=== PATIENT | female | born 1985 | race Caucasian/White ===

== ENCOUNTER 2025-08-30 04:08 | Emergency (ER) | payer OTHER, SELFPAY ==
--- OUTSIDE RECORDS SUMMARY | 2023-07-16 01:30 | XMS_ITS | Continuity of Care Document ---
Author Organization [facility] Address [address] [place] [address] [address] [place] [address] Phone Care Team Providers [facility] Name Role Phone Lucio Carvajal PT Unavailable Unavailable Procedures Procedure Date Therapeutic Activities Neuromuscular Re-Ed Therapeutic Exercise Therapeutic Activities Neuromuscular Re-Ed Therapeutic Exercise Dry Needling 1-2 muscles Therapeutic Activities Neuromuscular Re-Ed Therapeutic Exercise Dry Needling 1-2 muscles Therapeutic Activities Neuromuscular Re-Ed Therapeutic Exercise Therapeutic Activities Neuromuscular Re-Ed Therapeutic Exercise Therapeutic Activities Neuromuscular Re-Ed Therapeutic Exercise Therapeutic Activities Neuromuscular Re-Ed Therapeutic Exercise Therapeutic Activities Neuromuscular Re-Ed Therapeutic Exercise Therapeutic Activities Neuromuscular Re-Ed Therapeutic Exercise PT Evaluation Low Complexity Therapeutic Activities Neuromuscular Re-Ed Therapeutic Exercise Free Assessment Advance Directives Directive Yes / No Effective Date File Name No Information Encounters Encounter Description Practice Location Reason(s) For Visit Diagnoses Date Provider Providers Copied on Encounter [facility], [address], [place], [place], [id number], tel:[phone] [place] No Information Wei Morales . Referring Provider: Access Direct. [facility], [place], [place], [id number], tel:[phone] [place] No Information Wei Morales . Referring Provider: Access Direct. [facility] [address], [place], [place], [id number], tel:[phone] [place] No Information Wei Morales . Referring Provider: Access Direct. [facility], [place], [place], [id number], tel:[phone] [place] No Information Wei Morales . Referring Provider: Access Direct. [facility], [place], [place], [id number], [place] tel:[phone] [place] No Information Wei Morales . Referring Provider: Access Direct. [facility], [place], [id number], [place] tel:[phone] [place] No Information Wei Morales . Referring Provider: Access Direct. [facility], [place], [id number], [place] tel:[phone] [place] No Information Wei Morales . Referring Provider: Access Direct. [facility], [place], [id number], tel:[phone] [place] No Information Wei Morales . Referring Provider: Access Direct. [facility], [place], [id number], tel:[phone] [place] No Information Wei Morales . Referring Provider: [facility]. [facility], [place], [place], [id number], tel:[phone] [place] No Information Wei Morales . Referring Provider: Access Direct. [facility] [address], [place], [place], [id number], tel:[phone] [place] No Information Wei Morales . Referring Provider: Physician Screen. Family History Family Member Type Diagnosis Age At Onset No Information Payers Payer name Insurance type Covered alliance party ID Authorheathera tilobo(s) [facility] CI [id number] Social History Type Description Quantity Date Captured Comments Sex Female Smoking Status No Information Chief Complaint And Reason For Visit No Information Reason For Referral Reason For Referral No Information History Of Present Illness Encounter Date Complaint History Of Prese nt Illness No Information Functional Status Date Functional Assessmen t No Information Instructions Date Instruction Additional Infor mation No Information Assessments Type Assessment Date No Information Patient Care Teams Name Effective Dates (start - stop) Status Members No Information
--- NOTE | 2025-08-30 05:13 | ED_ITS ---
HPI - General Adult General Chief complaint: Psychiatric Symptoms <Avinash Justin MD - Last Filed: 08/30/25 05:23> Stated complaint: SI <Avinash Justin MD - Last Filed: 08/30/25 05:23> Time Seen by Provider: 08/30/25 04:34 <Avinash Justin MD - Last Filed: 08/30/25 05:23> History of Present Illness HPI narrative: patient is a 39-year-old female who presents emergency department with chief complaint involuntary hold for suicidal ideation per EMS and police the patient called EMS stating that she wanted to kill herself with a knife patient found her with a knife laying in bed the patient admitted to having thoughts of suicidal ideation and did report drinking alcohol this evening upon arriving to the emergency department the patient states that she does not want to be seen but is currently under an involuntary hold by [place] police <Avinash Justin MD - Last Filed: 08/30/25 05:23> patient is a 39-year-old female who presents to the emergency department with chief complaint involuntary hold for suicidal ideation per EMS and police the patient called EMS stating that she wanted to kill herself with a knife patient found her with a knife laying in bed the patient admitted to having thoughts of suicidal ideation and did report drinking alcohol this evening upon arriving to the emergency department the patient states that she does not want to be seen but is currently under an involuntary hold by [place] police <Beto Segundo MD - Last Filed: 08/30/25 18:22> Related Data Home medications: Home Medications ?Medication ?Instructions ?Recorded ?Confirmed ?Last Taken ?Type bupropion HCl 150 mg 24 hr tablet, 150 mg PO QAM 06/2006/20/25 Unknown History extended release (Wellbutrin XL) rosuvastatin 5 mg tablet 5 mg PO DAILY 06/20/2506/20 Unknown History <Avinash Justin MD - Last Filed: 08/30/25 05:23> Allergies/adverse reactions: Allergies Allergy/AdvReac Type Severity Reaction Status Date / Time amoxicillin Allergy Severe Hives Verified 06/20/25 11:06 Sulfa (Sulfonamide Allergy Mild Hives Verified 06/20/25 11:06 Antibiotics) <Avinash Justin MD - Last Filed: 08/30/25 05:23> Review of Systems 2 Review of Systems: A 10 system review of systems was completed on the patient and is negative except for what is stated in the HPI. Nursing and ancillary documentation was reviewed. <Avinash Justin MD - Last Filed: 08/30/25 05:23> PMFSH Family History Family History: Family History Father Hypertension Mother Diabetes mellitus Grandparent Diabetes mellitus <Avinash Justin MD - Last Filed: 08/30/25 05:23> Social History Social History: Social History Smoking status: Never smoker Alcohol intake: current Alcohol use details: ocass Substance use: never <Avinash Justin MD - Last Filed: 08/30/25 05:23> Exam 2 Narrative: GENERAL: Well-appearing, well-nourished, and in no acute distress. HEAD: Normocephalic, atraumatic. EYES: PERRLA and EOMI. ENT: Nares clear, no rhinorrhea or epistaxis. Mucous membranes moist. NECK: Supple. CHEST: Clear to auscultation. No respiratory distress. HEART: Regular rate and rhythm. No murmur heard. Normal peripheral pulses. ABDOMEN: Soft, nontender, nondistended, normal active bowel sounds. EXTREMITIES: Normal range of motion. No edema. SKIN: Warm, dry, no rash. NEURO: No focal deficits. Alert and oriented x3. PSYCH: anxious and cooperative <Avinash Justin MD - Last Filed: 08/30/25 05:23> Course Vital Signs Vital signs: Vital Signs Pulse Rate 72 08/30/25 13:40 Respiratory Rate 17 08/30/25 13:40 Blood Pressure 126/88 08/30/25 13:40 Pulse Oximetry 100 08/30/25 13:40 Pulse Rate 86 08/30/25 17:52 Respiratory Rate 16 08/30/25 17:52 Blood Pressure 132/76 08/30/25 17:52 Pulse Oximetry 99 08/30/25 17:52 <Avinash Justin MD - Last Filed: 08/30/25 05:23> Vital Signs Pulse Rate 72 08/30/25 13:40 Respiratory Rate 17 08/30/25 13:40 Blood Pressure 126/88 08/30/25 13:40 Pulse Oximetry 100 08/30/25 13:40 Pulse Rate 86 08/30/25 17:52 Respiratory Rate 16 08/30/25 17:52 Blood Pressure 132/76 08/30/25 17:52 Pulse Oximetry 99 08/30/25 17:52 <Beto Segundo MD - Last Filed: 08/30/25 18:22> [facility] Narrative Medical decision making narrative: scot- 31-year-old female presents emergency department for evaluation of alcohol intoxication and suicidal ideation. Patient was medically cleared was evaluated by crisis. Patient states he no longer has any suicidal ideation patient is well-appearing. Patient was going to follow up with her physicians and counselors. Patient was encouraged to return to the emergency department if she had any worsening symptoms. All questions and concerns were addressed. Patient was well-appearing at time of discharge <Beto Segundo MD - Last Filed: 08/30/25 18:22> Differential Diagnosis Differential Diagnosis: Suicidal ideation, depression, anxiety <Beto Segundo MD - Last Filed: 08/30/25 18:22> Lab Data [facility] Lab Attestation statement: I personally reviewed the patient's lab results. <Beto Segundo MD - Last Filed: 08/30/25 18:22> Result diagrams: 08/30/25 08:24 08/30/25 08:24 <Avinash Justin MD - Last Filed: 08/30/25 05:23> Labs: Lab Results 08/30/25 08/30/25 08/30/25 Range/Units 08:24 08:27 09:00 WBC 5.9 (4.5-10.0) K/mm3 RBC 4.45 (4.2-5.4) M/mm3 Hgb 13.7 (12.0-15.0) g/dL Hct 39.4 (37.0-47.0) % MCV 88.5 (80-100) fl MCH 30.8 (26-34) pg MCHC 34.8 (32-36) g/dl RDW 11.6 (11.5-14.5) % Plt Count 329 (150-375) k/mm3 MPV 8.5 (7.4-10.4) fl Immature Gran % (Auto) 0.3 (0-0.5) % Neut % (Auto) 46.9 (45.5-73.1) % Lymph % (Auto) 45.4 H (18.3-44.2) % [place] % (Auto) 4.9 (2.6-8.5) % Eos % (Auto) 1.5 (0-4.4) % Baso % (Auto) 1.0 (0.2-1.2) % Lymph # (Auto) 2.68 (0.9-3.2) K/mm3 [place] # (Auto) 0.3 (0.1-0.6) K/mm3 Eos # (Auto) 0.1 (0-0.3) K/mm3 Baso # (Auto) 0.1 (0.0-0.1) K/mm3 Abs Immat Gran (auto) 0.02 (0.00-0.031) K/mm3 Absolute Neuts (auto) 2.8 (1.3-6.7) K/mm3 Absolute Nucleated RBC 0.000 (0.0-0.012) K/mm3 Nucleated RBC % 0.0 (0.0-0.2) % Sodium 143 (137-145) mmol/L Potassium 4.1 (3.4-5.0) mmol/L Chloride 108 H (98-107) mmol/L Carbon Dioxide 23 (22-30) mmol/L Anion Gap 12 (4-12) mmol/L BUN 9 (7-17) mg/dL Creatinine 0.92 (0.7-1.0) mg/dL Estim Creat Clear Calc Not Reportable Estimated GFR > 60 (59 - ) Glucose 83 (65-110) mg/dL Calcium 9.1 (8.4-10.2) mg/dL Total Bilirubin 0.3 (0.2-1.3) mg/dL AST 32 (14-36) U/L ALT 24 (6-35) U/L Alkaline Phosphatase 63 (38-126) U/L Total Protein 8.3 H (6.3-8.2) g/dL Albumin 4.6 (3.5-5.1) g/dL TSH (Reflex) 1.790 (0.465-4.68) uIU/mL Urine Color Yellow (Yellow) Urine Appearance Clear (Clear) Urine pH 5.0 (5.0-9.0) Ur Specific Tebbetts 1.004 (1.001-1.035) Urine Protein Negative (Negative) mg/dL Urine Glucose (UA) Negative (Negative) mg/dL Urine Ketones Negative (Negative) mg/dL Ur Blood (Man) Negative (Negative) Urine Nitrate Negative (Negative) Urine Bilirubin Negative (Negative) Urine Urobilinogen 0.2 (<2.0) mg/dL Leukocyte Esterase Rfl Trace H (Negative) GAGAN/UL Urine RBC 0-2 (0-2) /hpf Urine WBC 0-5 (0-3) /hpf Ur Squamous Epith Cells Occasional (Few) /hpf Urine Bacteria None seen /hpf Urine Casts 0-2 Urine Test Negative Urine Opiates Screen Negative (Negative) Urine Methadone Screen Negative (Negative) Ur Barbiturates Screen Negative (Negative) Ur Phencyclidine Scrn Negative (Negative) Ur Amphetamine Screen Negative (Negative) U Benzodiazepines Scrn Negative (Negative) Urine Cocaine Screen Negative (Negative) U Cannabinoids Screen Negative (Negative) Ethyl Alcohol 189 (<10) mg/dL SARS-CoV-2 RNA (RT-PCR) Negative (Negative) 08/30/25 08/30/25 Range/Units 13:37 15:33 WBC (4.5-10.0) K/mm3 RBC (4.2-5.4) M/mm3 Hgb (12.0-15.0) g/dL Hct (37.0-47.0) % MCV (80-100) fl MCH (26-34) pg MCHC (32-36) g/dl RDW (11.5-14.5) % Plt Count (150-375) k/mm3 MPV (7.4-10.4) fl Immature Gran % (Auto) (0-0.5) % Neut % (Auto) (45.5-73.1) % Lymph % (Auto) (18.3-44.2) % [place] % (Auto) (2.6-8.5) % Eos % (Auto) (0-4.4) % Baso % (Auto) (0.2-1.2) % Lymph # (Auto) (0.9-3.2) K/mm3 [place] # (Auto) (0.1-0.6) K/mm3 Eos # (Auto) (0-0.3) K/mm3 Baso # (Auto) (0.0-0.1) K/mm3 Abs Immat Gran (auto) (0.00-0.031) K/mm3 Absolute Neuts (auto) (1.3-6.7) K/mm3 Absolute Nucleated RBC (0.0-0.012) K/mm3 Nucleated RBC % (0.0-0.2) % Sodium (137-145) mmol/L Potassium (3.4-5.0) mmol/L Chloride (98-107) mmol/L Carbon Dioxide (22-30) mmol/L Anion Gap (4-12) mmol/L BUN (7-17) mg/dL Creatinine (0.7-1.0) mg/dL Estim Creat Clear Calc Estimated GFR (59 - ) Glucose (65-110) mg/dL Calcium (8.4-10.2) mg/dL Total Bilirubin (0.2-1.3) mg/dL AST (14-36) U/L ALT (6-35) U/L Alkaline Phosphatase (38-126) U/L Total Protein (6.3-8.2) g/dL Albumin (3.5-5.1) g/dL TSH (Reflex) (0.465-4.68) uIU/mL Urine Color (Yellow) Urine Appearance (Clear) Urine pH (5.0-9.0) Ur Specific Tebbetts (1.001-1.035) Urine Protein (Negative) mg/dL Urine Glucose (UA) (Negative) mg/dL Urine Ketones (Negative) mg/dL Ur Blood (Man) (Negative) Urine Nitrate (Negative) Urine Bilirubin (Negative) Urine Urobilinogen (<2.0) mg/dL Leukocyte Esterase Rfl (Negative) GAGAN/UL Urine RBC (0-2) /hpf Urine WBC (0-3) /hpf Ur Squamous Epith Cells (Few) /hpf Urine Bacteria /hpf Urine Casts Urine Test Urine Opiates Screen (Negative) Urine Methadone Screen (Negative) Ur Barbiturates Screen (Negative) Ur Phencyclidine Scrn (Negative) Ur Amphetamine Screen (Negative) U Benzodiazepines Scrn (Negative) Urine Cocaine Screen (Negative) U Cannabinoids Screen (Negative) Ethyl Alcohol 99 67 (<10) mg/dL SARS-CoV-2 RNA (RT-PCR) (Negative) <Avinash Justin MD - Last Filed: 08/30/25 05:23> Lab Results 08/30/25 08/30/25 08/30/25 Range/Units 08:24 08:27 09:00 WBC 5.9 (4.5-10.0) K/mm3 RBC 4.45 (4.2-5.4) M/mm3 Hgb 13.7 (12.0-15.0) g/dL Hct 39.4 (37.0-47.0) % MCV 88.5 (80-100) fl MCH 30.8 (26-34) pg MCHC 34.8 (32-36) g/dl RDW 11.6 (11.5-14.5) % Plt Count 329 (150-375) k/mm3 MPV 8.5 (7.4-10.4) fl Immature Gran % (Auto) 0.3 (0-0.5) % Neut % (Auto) 46.9 (45.5-73.1) % Lymph % (Auto) 45.4 H (18.3-44.2) % [place] % (Auto) 4.9 (2.6-8.5) % Eos % (Auto) 1.5 (0-4.4) % Baso % (Auto) 1.0 (0.2-1.2) % Lymph # (Auto) 2.68 (0.9-3.2) K/mm3 [place] # (Auto) 0.3 (0.1-0.6) K/mm3 Eos # (Auto) 0.1 (0-0.3) K/mm3 Baso # (Auto) 0.1 (0.0-0.1) K/mm3 Abs Immat Gran (auto) 0.02 (0.00-0.031) K/mm3 Absolute Neuts (auto) 2.8 (1.3-6.7) K/mm3 Absolute Nucleated RBC 0.000 (0.0-0.012) K/mm3 Nucleated RBC % 0.0 (0.0-0.2) % Sodium 143 (137-145) mmol/L Potassium 4.1 (3.4-5.0) mmol/L Chloride 108 H (98-107) mmol/L Carbon Dioxide 23 (22-30) mmol/L Anion Gap 12 (4-12) mmol/L BUN 9 (7-17) mg/dL Creatinine 0.92 (0.7-1.0) mg/dL Estim Creat Clear Calc Not Reportable Estimated GFR > 60 (59 - ) Glucose 83 (65-110) mg/dL Calcium 9.1 (8.4-10.2) mg/dL Total Bilirubin 0.3 (0.2-1.3) mg/dL AST 32 (14-36) U/L ALT 24 (6-35) U/L Alkaline Phosphatase 63 (38-126) U/L Total Protein 8.3 H (6.3-8.2) g/dL Albumin 4.6 (3.5-5.1) g/dL TSH (Reflex) 1.790 (0.465-4.68) uIU/mL Urine Color Yellow (Yellow) Urine Appearance Clear (Clear) Urine pH 5.0 (5.0-9.0) Ur Specific Tebbetts 1.004 (1.001-1.035) Urine Protein Negative (Negative) mg/dL Urine Glucose (UA) Negative (Negative) mg/dL Urine Ketones Negative (Negative) mg/dL Ur Blood (Man) Negative (Negative) Urine Nitrate Negative (Negative) Urine Bilirubin Negative (Negative) Urine Urobilinogen 0.2 (<2.0) mg/dL Leukocyte Esterase Rfl Trace H (Negative) GAGAN/UL Urine RBC 0-2 (0-2) /hpf Urine WBC 0-5 (0-3) /hpf Ur Squamous Epith Cells Occasional (Few) /hpf Urine Bacteria None seen /hpf Urine Casts 0-2 Urine Test Negative Urine Opiates Screen Negative (Negative) Urine Methadone Screen Negative (Negative) Ur Barbiturates Screen Negative (Negative) Ur Phencyclidine Scrn Negative (Negative) Ur Amphetamine Screen Negative (Negative) U Benzodiazepines Scrn Negative (Negative) Urine Cocaine Screen Negative (Negative) U Cannabinoids Screen Negative (Negative) Ethyl Alcohol 189 (<10) mg/dL SARS-CoV-2 RNA (RT-PCR) Negative (Negative) 12/24/25 12/24/25 Range/Units 13:37 15:33 WBC (4.5-10.0) K/mm3 RBC (4.2-5.4) M/mm3 Hgb (12.0-15.0) g/dL Hct (37.0-47.0) % MCV (80-100) fl MCH (26-34) pg MCHC (32-36) g/dl RDW (11.5-14.5) % Plt Count (150-375) k/mm3 MPV (7.4-10.4) fl Immature Gran % (Auto) (0-0.5) % Neut % (Auto) (45.5-73.1) % Lymph % (Auto) (18.3-44.2) % [place] % (Auto) (2.6-8.5) % Eos % (Auto) (0-4.4) % Baso % (Auto) (0.2-1.2) % Lymph # (Auto) (0.9-3.2) K/mm3 [place] # (Auto) (0.1-0.6) K/mm3 Eos # (Auto) (0-0.3) K/mm3 Baso # (Auto) (0.0-0.1) K/mm3 Abs Immat Gran (auto) (0.00-0.031) K/mm3 Absolute Neuts (auto) (1.3-6.7) K/mm3 Absolute Nucleated RBC (0.0-0.012) K/mm3 Nucleated RBC % (0.0-0.2) % Sodium (137-145) mmol/L Potassium (3.4-5.0) mmol/L Chloride (98-107) mmol/L Carbon Dioxide (22-30) mmol/L Anion Gap (4-12) mmol/L BUN (7-17) mg/dL Creatinine (0.7-1.0) mg/dL Estim Creat Clear Calc Estimated GFR (59 - ) Glucose (65-110) mg/dL Calcium (8.4-10.2) mg/dL Total Bilirubin (0.2-1.3) mg/dL AST (14-36) U/L ALT (6-35) U/L Alkaline Phosphatase (38-126) U/L Total Protein (6.3-8.2) g/dL Albumin (3.5-5.1) g/dL TSH (Reflex) (0.465-4.68) uIU/mL Urine Color (Yellow) Urine Appearance (Clear) Urine pH (5.0-9.0) Ur Specific [place]betts (1.001-1.035) Urine Protein (Negative) mg/dL Urine Glucose (UA) (Negative) mg/dL Urine Ketones (Negative) mg/dL Ur Blood (Man) (Negative) Urine Nitrate (Negative) Urine Bilirubin (Negative) Urine Urobilinogen (<2.0) mg/dL Leukocyte Esterase Rfl (Negative) GAGAN/UL Urine RBC (0-2) /hpf Urine WBC (0-3) /hpf Ur Squamous Epith Cells (Few) /hpf Urine Bacteria /hpf Urine Casts Urine Test Urine Opiates Screen (Negative) Urine Methadone Screen (Negative) Ur Barbiturates Screen (Negative) Ur Phencyclidine Scrn (Negative) Ur Amphetamine Screen (Negative) U Benzodiazepines Scrn (Negative) Urine Cocaine Screen (Negative) U Cannabinoids Screen (Negative) Ethyl Alcohol 99 67 (<10) mg/dL SARS-CoV-2 RNA (RT-PCR) (Negative) <Beto Segundo MD - Last Filed: 08/30/25 18:22> Discharge Plan Discharge Clinical Impression: Suicidal ideation, Alcohol intoxication <Avinash Justin MD - Last Filed: 08/30/25 05:23> Patient Disposition: Home <Avinash Justin MD - Last Filed: 08/30/25 05:23> Condition: Stable <Avinash Justin MD - Last Filed: 08/30/25 05:23> Instructions: Antibiotic Form, Stress (ED), Depression (ED) <Avinash Justin MD - Last Filed: 08/30/25 05:23> Additional Instructions: Follow-up with your counselors. If you have any worsening symptoms or if you do not feel safe please feel free to return to the emergency department at any time. <Avinash Justin MD - Last Filed: 08/30/25 05:23> Patient Language: Venezuelan <Avinash Justin MD - Last Filed: 08/30/25 05:23> Prescriptions: No Action bupropion HCl [Wellbutrin XL] 150 mg tablet extended release 24 hr 150 mg PO QAM rosuvastatin 5 mg tablet 5 mg PO DAILY zolpidem [Ambien] 5 mg tablet 5 mg PO QHS PRN (Reason: insomnia) Qty: 10 0RF nitrofurantoin monohyd/m-cryst [Macrobid] 100 mg capsule 100 mg PO DAILY PRN (Reason: after intercourse) Qty: 30 0RF Rx Instructions: must administer with a meal/food levonorgestrel-ethinyl estrad [Levora-28] 0.15-0.03 mg tablet 1 tablet PO DAILY Qty: 84 3RF alprazolam 0.5 mg tablet 0.5 mg PO DAILY PRN (Reason: anxiety) Qty: 30 0RF <Avinash Justin MD - Last Filed: 08/30/25 05:23> Follow-up/Referrals: Deion Guan MD [Physician, Internal Medicine] <Avinash Justin MD - Last Filed: 08/30/25 05:23>
--- OUTSIDE RECORDS SUMMARY | 2025-08-30 05:34 | XMS_ITS | Encounter Summary ---
Author Organization [facility] Address [address] [place] [address] Care Team Providers Care Liquor Tester Name Role Phone Daisy Marti Primary Care Provider [phone] Encounter Details Date Type Department Care Team (Late Contact Info) Description 08/01/2024 [employer] Message Enc [facility] Family & Internal Medicine [address] [phone] [facility] Provider Lab results Social History Tobacco Use Types Packs/Day Years Used Date Smoking Tobacco: Never Smokeless Tobacco: Never Alcohol Use Standard Drinks/Week Comments Not Currently 0 (1 standard drink = 0.6 oz pur e alcohol) PHQ-2 Answer Date Recorded Patient Health Questionnaire-2 Score 0 04/01/2024 Comments No Sex and Gender Information Value Date Recorded Sex Assigned at Female 12/28/2024 10:51 AM CDT 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 Gender Identity Not on file Sexual Orientation Not on file documented as of this encounter Plan of Treatment Upcoming Encounters Date Type Department Care Team (Late Contact Info) Description 09/06/2025 12:40 PM CLOSING SUPERVISOR Office Visit [facility] Family & Internal [address] [phone] Daisy Marti APNP [address] [place] [phone] documented as of this encounter Visit Diagnoses Not on filedocumented in this encounter Additional Health Concerns Assessment Noted Time PHQ-9 Depression Total Score: 2 10/22/19 9:16 AM CLOSING SUPERVISOR documented as of this encounter Care Teams Liquor Tester Relationship Specialty Start Date End Date Daisy Marti APNP [address] [place] [id number] PCP - General NURSE PRACTITIONER 10/22/21 documented as of this encounter
--- OUTSIDE RECORDS SUMMARY | 2025-08-30 05:34 | XMS_ITS | Encounter Summary ---
Author Organization [facility] Address [address] [place] [address] Care Team Providers Care Gun Perforator Loader Name Role Phone Daisy Marti Primary Care Provider [phone] Encounter Details Date Type Department Care Team (Late st Contact Info) Description 05/02/2023 [employer]-Gas Message Enc [facility] Family & Internal Medicine [facility] [address] [place] [phone] Daisy Marti APNP [address] [place] [address] Test Results Social History Tobacco Use Types Packs/Day Years Used Date Smoking Tobacco: Never Smokeless Tobacco: Never Alcohol Use Standard Drinks/Week Comments Not Currently 0 (1 standard drink = 0.6 oz pur e alcohol) PHQ-2 Answer Date Recorded Patient Health Questionnaire-2 Score 1 05/01/2023 Comments No Sex and Gender Information Value Date Recorded Sex Assigned at Female 12/28/2024 10:51 AM CDT 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 Let's recheck your lipids in 3 months. * Myra Garcia MA - 05/22/2023 8:34 AM CDTFrom: [facility] To: Daisy Marti Sent: 05/02/2023 11:02 AM CDT Subject: Test Results Chad Villa! I looked at my test results and have a concern. Since high cholesteryl runs in my family and my dad currently has an aneurysm that needs a major surgery, I am pretty concerned that my numbers aspen a bit from last year. I even lost 12 pounds since my last. Let me know what you think! Thankyou! documented in this encounter Plan of Treatment Upcoming Encounters Date Type Department Care Team (Late st Contact Info) Description 09/06/2025 12:40 PM SEMI TRUCK DRIVER Office Visit [facility] Family & Internal Medicine - [address] [phone] Daisy Marti APNP [address] [place] [phone] documented as of this encounter Visit Diagnoses Not on filedocumented in this encounter Additional Health Concerns Assessment Noted Time PHQ-9 Depression Total Score: 2 10/22/19 9:16 AM SEMI TRUCK DRIVER documented as of this encounter Care Teams Gun Perforator Loader Relationship Specialty Start Date End Date Daisy Marti APNP [address] [place] [id number] PCP - General NURSE PRACTITIONER 10/22/21 documented as of this encounter
--- NOTE | 2025-08-30 05:44 | PC.NURSE ---
pt dad visiting pt currently. dad states pt has been having a lot of stress with her son who is acting out due his dad recently being .
--- NOTE | 2025-08-30 05:47 | PC.NURSE ---
pt is refusing to have any staff do an assessment, get vitals, draw blood or give urine.
--- NOTE | 2025-08-30 07:17 | PC.NURSE ---
Took report on patient at 711
[2025-08-30 08:35] LABS: Hematocrit 39.4 % (37.0-47.0); Hemoglobin 13.7 g/dL (12.0-15.0); Immature Granulocyte Percent A 0.3 % (0-0.5); Lymphocytes Absolute Auto 2.68 K/mm3 (0.9-3.2); Mean Corpuscular HGB Conc 34.8 g/dl (32-36); Mean Corpuscular Hemoglobin 30.8 pg (26-34); Mean Corpuscular Volume 88.5 fl (80-100); Nucleated Red Blood Cells Absolute Auto 0.000 K/mm3 (0.0-0.012); Nucleated Red Blood Cells Perc 0.0 % (0.0-0.2); Platelet Count Result 329 k/mm3 (150-375); Red Blood Count 4.45 M/mm3 (4.2-5.4); White Blood Count 5.9 K/mm3 (4.5-10.0)
[2025-08-30 08:40] LABS: Pregnancy On Board Control Positive
[2025-08-30 08:43] LABS: Add Urine Microscopic? YES; Appearance Urine Clear (Clear); Glucose Urine UA Negative (Negative); Leukocyte Esterase Ur Trace LEU/UL (Negative); Nitrate Urine Negative (Negative); Non Pathogenic Casts 0-2; Specific Grav Ur 1.004 (1.001-1.035)
[2025-08-30 08:54] LABS: Alanine Aminotransferase 24 U/L (6-35); Albumin Level 4.6 g/dL (3.5-5.1); Alkaline Phosphatase 63 U/L (38-126); Anion Gap 12 mmol/L (4-12); Aspartate Amino Transferase 32 U/L (14-36); Bilirubin,Total 0.3 mg/dL (0.2-1.3); Blood Urea Nitrogen 9 mg/dL (7-17); Calcium 9.1 mg/dL (8.4-10.2); Carbon Dioxide 23 mmol/L (22-30); Chloride 108 mmol/L (98-107); Estimated Glomerular Filt Rate > 60; Glucose 83 mg/dL (65-110); Potassium 4.1 mmol/L (3.4-5.0); Sodium 143 mmol/L (137-145); Total Protein 8.3 g/dL (6.3-8.2)
[2025-08-30 09:24] LABS: Thyroid Stimulating Hormone Reflex 1.790 uIU/mL (0.465-4.68)
[2025-08-30 09:29] LABS: Cannabinoid Screen Urine Negative (Negative)
[2025-08-30 09:41] LABS: SARS-CoV-2 RNA PCR Negative (Negative)
[2025-08-30 13:40] VITALS: BP 126/88; PULSE 72; RESP 17; O2SAT 100
[2025-08-30 17:52] VITALS: BP 132/76; PULSE 86; RESP 16; O2SAT 99
== END 2025-08-30 17:53 | disposition home or self-care (01) ==
PROVIDERS: Emergency Medicine; Emergency Provider Emergency Medicine
DX: R45.851 Suicidal ideations (principal); F10.129 Alcohol abuse with intoxication, unspecified; Y90.6 Blood alcohol level of 120-199 mg/100 ml; Z11.52 Encounter for screening for COVID-19
CPT/HCPCS: 36415; 80053; 80307; 81001; 81025; 82077; 84443; 85025; 87635; 99283